=== PATIENT | male | born 1990 | race Caucasian/White ===

== ENCOUNTER 2023-08-18 18:39 | Emergency (ER) | payer MEDICAID, SELFPAY ==
[2023-08-18 18:41] VITALS: BP 134/88; PULSE 102; RESP 18; TEMP 37.1; O2SAT 93; BMI 46.2
--- NOTE | 2023-08-18 19:04 | EDS_ITS ---
HPI History of Present Illness Chief Complaint: Abd Pain Informant: patient Narrative Narrative: Patient has nonspecific complaint. Patient states that he was at home. He got the feeling like he smelled ammonia. He got a little lightheaded. His stomach had a little cramping. He does not know why this happened. But since his girlfriend was here getting an ultrasound he figured he would bring the child that he was home with, put her in the room with his girlfriend and get checked out. On review of systems I find that he also takes kratom twice a day for chronic pain and took it 3 times today. He wonders if taking medicines at an increased rate could cause different symptoms. Medications currently are olanzapine 5 mg every afternoon Trazodone 100 mg every afternoon Kratom twice a day unknown and not FDA controlled dosage Denies abdominal surgeries PFSH PFSH Home Medications olanzapine 10 mg tablet 7.5 mg PO QHS 08/18/23 [History Last Taken Unknown] trazodone 100 mg tablet 200 mg PO QHS 08/18/23 [History Last Taken Unknown] Allergy/AdvReac Type Severity Reaction Status Date / Time No Known Allergies Allergy Verified 08/18/23 18:41 Social History Smoking Status: Unknown if ever smoked ROS ROS ED ROS Narrative A complete review of systems was performed and is negative except as documented in the history of present illness. Some specific details below. Constitutional: No recent fevers or chills. EYE: No visual complaints or pain. ENT: No difficulty swallowing. No swelling. No pain. He does note smelling an ammonia smell transiently. CV: No chest pain or palpitations. Respiratory: No dyspnea. No hemoptysis. No difficulty taking breaths. GI: He had some abdominal cramping across his lower abdomen but it seems better now. : No frequency dysuria or hematuria. Musculoskeletal: No recent trauma. No pains. Skin: No rash. Nondiaphoretic. Neuro: No weakness or numbness. Endocrine: No polyuria or polydipsia. EXAM Physical Exam Narrative Exam Narrative: CONSTITUTIONAL: Patient is nontoxic in appearance. The patient looks comfortable. HEENT: No notable trauma. Mucous membranes moist. EYES: No conjunctival injection. No proptosis. Pupils look normal. CARDIOVASCULAR: Regular rate. Regular rhythm. No notable murmur. No JVD. RESPIRATORY: No respiratory distress. Breathing is unlabored. No wheezes. No rhonchi. No rales. No pain with a deep breath. GASTROINTESTINAL: Not distended. Bowel sounds are normal. No tenderness. No guarding. No rebound. No palpable mass. No bruit. Overall abdomen is completely benign. GENITOURINARY: No tenderness over the bladder. No CVA tenderness. MUSCULOSKELETAL: Atraumatic. No peripheral edema. No cord. No tenderness along the deep venous system. No asymmetry. NEUROLOGICAL: Patient is alert and appropriate. No focal deficit noted. SKIN: No noted rashes. No diaphoresis. PSYCHIATRIC: Patient is calm. Mood is appropriate. Const Vital Signs: 08/18/23 18:41 Temperature 98.7 F Temperature Source Temporal Pulse Rate 102 H Respiratory Rate 18 Blood Pressure 134/88 H Blood Pressure Mean 103 Pulse Ox 93 Oxygen Delivery Method Room Air MDM MDM MDM Narrative Medical decision making narrative: Patient's CBC shows no marked abnormalities. Patient's basic metabolic panel shows no marked abnormalities. Patient's liver function test show elevation of ALT but no other elevations. Patient feels better. It is unclear what caused his symptoms. This certainly could be the extra Kratom that he took today. I recommend he not take uncontrolled herbals that he gets through the mail. Lab Data Attestation: I reviewed the patient's lab results. Labs: Laboratory Results - last 24 hr 08/18/23 19:32 WBC 10.1 RBC 5.40 Hgb 14.8 Hct 45.3 MCV 83.9 MCH 27.4 MCHC 32.7 RDW Std Deviation 37.2 RDW Coeff of Caro 12.4 Plt Count 223 MPV 9.1 Immature Gran % (Auto) 0.400 Neut % (Auto) 79.5 H Lymph % (Auto) 13.3 L Parmer % (Auto) 5.8 Eos % (Auto) 0.7 Baso % (Auto) 0.3 Absolute Neuts (auto) 8.1 H Absolute Lymphs (auto) 1.35 Nucleated RBC % 0 Sodium 138 Potassium 4.2 Chloride 106 Carbon Dioxide 30.0 Anion Gap 2 L BUN 12 Creatinine 1.04 Estim Creat Clear Calc 127.72 Est GFR (MDRD) Af Amer 105 Est GFR (MDRD) Non-Af 87 BUN/Creatinine Ratio 11.5 Glucose 87 Calcium 9.0 Total Bilirubin 0.30 AST 34 ALT 89 H Alkaline Phosphatase 68 Total Protein 7.2 Albumin 3.5 Globulin 3.7 Albumin/Globulin Ratio 0.9 EKG Initial EKG: Comments: My independent interpretation of the patient's EKG shows sinus rhythm with a rate of 94. No ventricular ectopy. No acute ST elevation or depression.. MN interval, QRS duration and QTc are normal. Discharge Plan Triage Chief Complaint: Abd Pain ED Provider: Yon Reyes Dx/Rx/DC Orders Clinical Impression: Accidental medication overdose, Abdominal cramping Instructions: Abdominal Pain Primary Care Provider: Tiera Torres [employer] Referrals: Tiera Torres [employer], [employer]-[facility] [Primary Care Provider] - As Needed Disposition Disposition: Home, Self Care
--- OUTSIDE RECORDS SUMMARY | 2023-08-18 19:20 | XMS RPT_ITS | CCD ---
Author Name Unknown Address [address] [place] [address] Organization [facility] Care Team Providers Care Admissions Supervisor Name Role Phone Unavailable Primary Care Provider UnavailELIEZER Spaulding Attending Unavailable TIERA CORONA Referring Unavailable LAVINIA VERAS Attending Unavailable TIERA CORONA Referring Unavailable ELIEZER CAMARILLO Attending Unavailable ELIEZER CAMARILLO Attending Unavailable YOVANI ALONSO Attending Unavailable TIERA CORONA Primary Care Unavailable Allergies Allergy Classification Reported Allergen(s) Allergy Type Date of Onset Reaction(s) Facility (5 sources) Cat Dander; Translations: [CAT DANDER] Drug Allergy 01-25-2022 Itching [facility] Work Phone: Medications Current Medications Medication Drug Class(es) Dates Sig (Normalized) Sig (Original) ciclopirox 7.7 mg/ml topical cream (2 sources) Start: 01-25-2022 End: 02-08-2022 ciclopirox (LOPROX) 0.77 % cream Apply to affected area twice daily for 14 days. 15 g 0 01/25/2022 02/08/2022 Active Completed/Discontinued Medications Medication Drug Class(es) Dates Sig (Normalized) Sig (Original) busPIRone hydrochloride 10 mg oral tablet (1 source) Start: 05-31-2022 take 1 tablet by mouth twice daily busPIRone (BUSPAR) 10 mg tablet Take 1 tablet by mouth twice daily. 0 05/31/2022 Active Problems Active Problems Problem Classification Problem Date Documented Date Episodic/Chronic Fever of unknown origin (1 source) Fever, unspecified; Translations: [Fever, unspecified fever cause] Onset: 07-23-2023 Episodic Immunizations and screening for infectious disease (1 source) Patient encounter status; Translations: [Encounter for screening for human immunodeficiency virus [HIV]] Episodic Mood disorders (4 sources) Bipolar disorder; Translations: [Bipolar disorder, unspecified] Onset: 11-08-2020 Chronic Other nutritional; endocrine; and metabolic disorders (1 source) Severe obesity; Translations: [Morbid (severe) obesity due to excess calories] Chronic Other nutritional; endocrine; and metabolic disorders (3 sources) Body mass index 40+ - severely obese; Translations: [Morbid (severe) obesity due to excess calories] Onset: 01-25-2022 01-25-2022 Chronic Other skin disorders (1 source) Eruption; Translations: [Rash and other nonspecific skin eruption] Episodic Other upper respiratory infections (1 source) Acute upper respiratory infection, unspecified; Translations: [Upper respiratory tract infection, unspecified type] Onset: 07-23-2023 Episodic Schizophrenia and other psychotic disorders (5 sources) Schizoaffective disorder, bipolar type; Translations: [Schizoaffective disorder, bipolar type] Onset: 01-25-2022 Chronic Substance-related disorders (1 source) Other stimulant abuse, in remission; Translations: [Methamphetamine abuse in remission (HCC)] Onset: 05-25-2022 Chronic Unclassified (1 source) No-show for appointment; Translations: [No-show for appointment] Onset: 10-23-2022 Unclassified (1 source) Cough, unspecified type; Translations: [Cough, unspecified type] Onset: 07-23-2023 Past or Other Problems Problem Classification Problem Date Documented Da te Episodic/Chronic Hepatitis (6 sources) Viral hepatitis C; Translations: [Unspecified viral hepatitis C without hepatic coma] Onset: 01-25-2022 Episodic Substance-related disorders (4 sources) 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; Translations: [Other psychoactive substance use, unspecified with psychoactive substance-induced psychotic disorder, unspecified] Onset: 05-25-2022 05-31-2022 Episodic Results Test Name Value Interpretation Reference Range Facil ity Vital Signs Date Time Vital Sign Value Performing Clinician Cynthia arriola 01-25-2022 09:46-0400 Body height 167.6 cm Tiera Corona APRN.CNP Work Phone: [facility] 01-25-2022 09:46-0400 Body temperature 97.59 [degF] Tiera Corona APRN.CNP Work Phone: [facility] 01-25-2022 09:46-0400 Body weight 116.03 kg Tiera Corona ANIMAL RIDES MANAGER.CAR DRIVER Work Phone: [facility] 01-25-2022 09:46-0400 Diastolic blood pressure 70 mm[Hg] Tiera Queden ANIMAL RIDES MANAGER.CAR DRIVER Work Phone: [facility] 01-25-2022 09:46-0400 Heart rate 95 /min Tiera Laneden ANIMAL RIDES MANAGER.CAR DRIVER Work Phone: [facility] 01-25-2022 09:46-0400 Respiratory rate 18 /min Tiera Domingoden ANIMAL RIDES MANAGER.CAR DRIVER Work Phone: [facility] 01-25-2022 09:46-0400 SaO2% (BldA) [Mass fraction] 96 % Tiera Laneden ANIMAL RIDES MANAGER.CAR DRIVER Work Phone: [facility] 01-25-2022 09:46-0400 Systolic blood pressure 100 mm[Hg] Tiera Queden ANIMAL RIDES MANAGER.CAR DRIVER Work Phone: [facility] Encounters Encounter Date Encounter Type Care Provider Facility Start: 07-23-2023 End: 07-23-2023 ambulatory YOVANI ALONSO Facility:[facility] Start: 10-23-2022 ambulatory ELIEZER CAMARILLO Facility: [facility] Start: 08-21-2022 End: 08-21-2022 ambulatory ELIEZER CAMARILLO Facility:[facility] Start: 05-29-2022 ambulatory Tiera joe ANIMAL RIDES MANAGER.CAR DRIVER Work Phone: [facility] Plan of Treatment Date Care Activity Detail Author Start: 03-22-2022 Influenza vaccination INFLUENZA (#1) [facility] Start: 01-25-2022 End: 03-27-2022 CBC W Auto Differential panel - Blood CBC + DIFF Lab Routine Well adult exam Expected: 01/25/2022, Expires: 03/27/2022 [facility] Work Phone: Payers Date Payer Category Payer Medicaid [employer] [id number] 2021-Present [phone] [address] [place] [address] Medicaid [id number] 2021 Medicaid [place] TERM 06/20 [employer] [employer] [id number] 2021-2022 [address] [place] [address] Medicaid [id number] 2021 Medicaid [id number] Social History Date Type Detail Facility Start: 01-25-2022 End: 03-19-2022 Tobacco smoking status NHIS Never smoked tobacco [facility] Start: 01-25-2022 End: 03-19-2022 Tobacco use and exposure User of smokeless tobacco [facility] History of tobacco use Chews Tobacco [facility] Start: 01-25-2022 End: 03-19-2022 Alcohol intake Ex-drinker (finding) [facility] Start: 1990 Sex Assigned At Not on file [facility] Start: 01-15-2022 End: 02-05-2022 Exposure to SARS-CoV-2 (event) Not sure [facility] Clinical Notes 01-25-2022 to 07-23-2023 Telephone Encounter - Nicky Perez MA - 06/01/2022 4:50 PM ESTTelephone Encounter - Tiera Corona APRN.CNP - 06/01/2022 4:31 PM EST Note Date & Type Note Facility 07-23-2023 Note HNO ID: [id number] Author: Yovani Alonso APRN.LEAH Service: ? Author Type: Nurse Practitioner Type: Progress Notes Filed: 07/23/2023 5:42 PM Note Text: Telemedicine Evaluation for COVID-19 Infection MyChart Zoom Video Visit was used for evaluation of this patient. I have communicated my name and active licensure. The patient's identity and physical location were verified at the time of this visit. Either the patient or their legal artists' booking representative has been informed of the risks and benefits of -- and alternatives to -- treatment through a remote evaluation and consents to proceed with the evaluation remotely. SUBJECTIVE Naya Joyce is a 33 year old male who presents with 5 days of symptoms that are worsening. Started with mild sore throat Stuffy nose, runny nose Then cough Cough is persistent - keeping him up all night Cough is productive Symptoms include: Fever (?100.4F): Yes or Chills: Yes Cough: Yes Shortness of breath: No or Difficulty breathing: No Fatigue: Yes Muscle aches: Yes - just lower back Headache: Yes New loss of smell or taste: No Sore throat: Yes Nasal congestion: No or Rhinorrhea: No Nausea: No or Vomiting: No Diarrhea: No OTC meds/remedies that patient has tried: Dayquiol, Nyquil, acetaminophen. High risk category assessment No high risk factors Exposures: Sick contacts? Yes Family or close contacts with confirmed/probable COVID-19 in last 14 days? No Mom was really sick and she took COVID test and it was negative OBJECTIVE VIDEO EXAM GENERAL: Ill-appearing, but non-toxic HEENT: no conjunctival injection, pupils equal, moist mucous membranes, and oropharynx clear without erythema PULMONARY: breathing comfortably on room air , coughing, and no wheezing noted ASSESSMENT/PLAN (R05.9) Cough, unspecified type (primary encounter diagnosis) (J06.9) Upper respiratory tract infection, unspecified type (R50.9) Fever, unspecified fever cause COVID/Flu/RSV test ordered Continue OTC cough/cold medications Tessalon perles as needed Off work till 07/25 Follow up for worsening or persistent symptoms. - Discussed symptom monitoring and supportive care - Red flag symptoms requiring follow up discussed Yovani Alonso APRN.[facility] 10-23-2022 Note HNO ID: [id number] Author: Eliezer Camarillo MD Service: ? Author Type: Resident Type: Progress Notes Filed: 10/23/2022 3:57 PM Note Text: Attestation signed by Johnathon Wright MD at 10/23/2022 4:06 PM Attending Note I evaluated the patient and personally participated in the garcia components. I agree with the resident's findings and plan as documented and have discussed the case and management of the patient's care with the resident. Signature: Johnathon Wright MD Date: 10/23/2022 Time: 4:06 PM I called to speak to patient. He stated that he had switched providers to someone closer who could see him in-person. He asked to terminate care here as a result. Eliezer Camarillo MD [facility] 08-21-2022 Note HNO ID: [id number] Author: Eliezer Camarillo MD Service: ? Author Type: Resident Type: Progress Notes Filed: 08/21/2022 2:38 PM Note Text: OUTPATIENT PSYCHIATRY NOTE FOLLOW-UP, VIRTUAL 08/21/2022 Assessment: Naya Joyce is a 32 year old male with psychiatric history of schizoaffective disorder, bipolar disorder, history of IVDA, Kratom use, cannabis use, and opioid use disorder and medical history pertinent for HCV and obesity c3 who presents to the [facility] for a follow-up regarding his medications. He was last seen by me for an initial evaluation on 05/25/22. At that time, the plan was made to discontinue Cariprazine for Olanzapine as he reported previously doing better on that medication. He agreed to attempt ceasing THC and Kratom use. Since his last appointment, Naya was able to successfully stop using THC and reported improvement in mood with medication until acute stressor of having his four kids from [place] move in with him happened. He quit his job and is now unemployed. He has a supportive partner who is helping out. He endorsed stable/improved anxiety but continues to struggle with irritability, AH, delusions, and low energy. Will increase Olanzapine while decreasing Trazodone to for mood stabilization and psychotic symptoms while improving energy during the day. Pristiq will be increased to help with energy and irritability as well. I suspect that psychotic symptoms are related to past meth abuse and past trauma--may not resolve entirely with antipsychotic use. He is seeking therapy which will be beneficial. Continuing to use 4 bottles of Kratom from 5--agreed to attempt decreased use. RTC 2 months. Diagnosis: Schizoaffective disorder, depressive type Trauma or stressor-related disorder R/O PTSD Methamphetamine use disorder, severe, in remission Opioid use disorder History of heroin use in remission Daily Kratom use (14g daily) Cocaine use disorder in remission Cannabis use, episodic GAF: 55 -60-51 Moderate symptoms or moderate difficulty in social, occupational or school functioning. Plan: Start Olanzapine 10mg PO QHS Continue Trazodone 300mg PO QHS Continue Clonidine 0.1mg PO BID Continue Buspirone 10mg PO BID Continue Desvenlafaxine ER 50mg PO daily Taper Kratom use to at least 3 bottles. RTC: 2 months 10/23 3:50pm, virtual CC: Medication management Interval events -Last psychiatry appointment was on 05/25/22. -Follow-up was canceled/rescheduled. Therefore delayed appointment today. -No other events per chart review Current medications -Olanzapine 10mg at bedtime -Trazodone 300mg PO QHS -Clonidine 0.1mg BID ?? -Buspirone 10mg PO BID -Pristiq 50mg daily PDMP website checked and validated. All prescriptions have been APPROPRIATELY filled. No suspicious activity was identified. 08/21/2022 by Eliezer Camarillo MD Past medications: Cariprazine Zoloft (made it worse) Suboxone (too strong) Gabapentin (there was no change) Significant history -Significant polysubstance abuse starting in late teen years into adulthood with cocaine, opioid pills, then heroin and meth. Psychotic features emerged after meth abuse started. -From [place]. Primary psychiatric symptom of concern: Mood swings, auditory hallucinations Perceived progress: mixed Stressors: Loss of employment 4 new kids at home. -- Faxed records, has not found the time to do it yet. Therapy: Not yet. Still having trouble finding a therapist. Work: Unemployed, seeking employment. Medications Before kids moved in, he was noticing some improvements with the medication. Mood was better and less irritable. Always tired. Sleep Sleeps through the night. Goes to bed at 9:30, wakes up at 6:45. Not waking up at night. Feels tired. Appetite: overeating because of stress. Mood is good . There are now five kids at home. This has added stress. Four kids from [place] now live with him, starting 07/16. Auditory hallucinations did not change at all with the medications Still one male voice. Always negative even when he is in a good mood. Urmila Irvin delusion is still present but he is able to resist. At the gas station, thinks he is seeing famous people. Endorsed thoughts of self-harm. Feeling like a failure. Better off if I'm not here. Thoughts of crashing his car. Voices are telling him to follow through, able to talk back at them. More easily irritable with kids and girlfriend. Girlfriend is doing a good job with helping. Substances Stopped smoking THC. Still using Kratom, 4 bottles instead of 5. Anxiety is not that bad. Doesn't take BP at home. No headaches or changes vision. Refills: all Preferred pharmacy: [facility] in [facility] REVIEW OF SYSTEMS PAIN ASSESSMENT: Negative for pain, history of chronic pain, or current treatment for a chronic pain condition. GENERAL: No weight loss, malais (more content not included)... [facility] 06-01-2022 Miscellaneous Notes Patient is informed. Nicky Perez MA Please let the patient know that I placed a referral for psychology. I would recommend to see if his psychiatrist recommends anyone for counseling. If not, please give him Michael Noriega's number that comes to [place] from [facility]. documented in this encounter [facility] 05-25-2022 Note HNO ID: [id number] Author: Eliezer Camarillo MD Service: ? Author Type: Resident Type: Progress Notes Filed: 06/04/2022 7:35 AM Note Text: Attestation signed by Lynda Wang MD at 06/04/2022 7:35 AM Attending Note I evaluated the patient and personally participated in the garcia components. I agree with the resident's findings and plan as documented and have discussed the case and management of the patient's care with the resident. TELEHEALTH VISIT: I was present throughout all critical parts of the telehealth visit. I spent 30 minutes. Signature: Lynda Wang MD Date: 06/04/2022 Time: 7:35 AM PSYCHIATRY - INITIAL ASSESSMENT Patient was seen for an initial evaluation. All information is from patient report except when noted. This evaluation is not intended for forensic, disability, or child custody purposes. This note was partially created using voice recognition software and is inherently subject to errors including those of syntax and sound-alike substitutions which may escape proofreading. In such instances, original meaning may be extrapolated by contextual derivation. Type of visit: virtual visit Accompanied by: self DATE: May 25, 2022 PATIENT: Naya Joyce REFERRAL SOURCE: Tiera Corona APRN, LEHA BACKGROUND INFORMATION ID: Naya Joyce is a 32 year old male from [place], [place] who presents today for initial psychiatric assessment. PREVIOUS/RECENT EVALS: PCP visit on 01/25/22 with Tiera Corona APRN CAR DRIVER: Naya Joyce is a 31 year old male who presents for Physical and Establish Care. I reviewed past medical, surgical, social, and family histories today and updated chart. Allergies, chronic medications, and supplements were also reviewed. Recently moved here from [place] about a year and half ago Used to use IV drugs and has been sober for 3 years Diagnosed with schzio-affective bipolar disorder and has been following with [facility] in [place] but he has been having issues getting his Pristiq and has been out for about 3 months now He does feel like he has a hard time to get motivated Needs referral to psychiatry He did go to the [facility] for a few months back when he first moved here 1.5 years ago but did not have a good experience there. He was in the Suboxone clinic there but it was too strong for him so he wanted to stop the medication and they told him he could no longer have counseling without taking the medication. Instead he uses Kratom every day. His girlfriend administers it for him and he states he has weaned down to a quarter of a small bottle daily. He vapes marijuana a few times a week. He does not drink alcohol. He is not currently working 5 kids 2. Schizoaffective disorder, bipolar type (HCC) - ICD9: 295.70, ICD10: F25.0 - Discussed with patient that he will need to establish with psychiatry for medication management. - VRAYLAR 6 MG CAPSULE - CLONIDINE HCL 0.1 MG TABLET - HYDROXYZINE HCL 50 MG TABLET - TRAZODONE 150 MG TABLET - CONSULT TO PSYCHIATRY 3. Bipolar affective disorder, remission status unspecified (HCC) - ICD9: 296.80, ICD10: F31.9 - Will give him a refill until he is seen by psychiatry - DESVENLAFAXINE SUCCINATE ER 50 MG TABLET,EXTENDED RELEASE 24 HR SUBJECTIVE CC: it started a while ago. I started to hear voices. HPI: Describes self as shy, loves his family . Currently sees a psychiatrist at [facility]. Prefers to switch to [facility] for virtual ease. He hasn't told Dr. Esqueda about the switch because he forgot about this appointment. Interim events Had a mental breakdown in [place] about 3.5 years. Moved from [place] about 1.5 years ago, medications were working at the time. Olanzapine, Clonazepam, and a medication he cannot remember. From [facility] in [place], [place] Symptoms Auditory hallucinations Voices started at age 28 or 29. Voices that narrate his life. One time they told him that a car was his and he tried to take it and got in trouble. Denied voices currently. But hears them at least once a day. Hears two voices. One is his own. The other is intrusive. Male voice every time. Perceived as internal There are commands Last command was about one month ago. He was working a job and the voice was saying you don't need to work. Unable to resist the voice in his head. Only one instance of the voice with command to hurt himself. None currently. Denied CAH related to HI. Voice increases with stress Substance use Started using at age 15 with cocaine for about one year. Reason for using: started using pain medication meant for her girlfriend. Progressed to opioids until 25y Then moved on to heroin and meth. Hi (more content not included)... [facility] 03-19-2022 Note HNO ID: [id number] Author: Lavinia Veras PA-C Service: ? Author Type: Physician Radon Inspector Type: Progress Notes Filed: 03/19/2022 9:49 AM Note Text: CHIEF COMPLAINT: Patient presents with: Hepatitis C: Labs 02/05/22 This consult was requested by Tiera Corona APRN* for an opinion regarding Hepatitis C. My final recommendations will be communicated to the requesting health care provider by way of the shared medical record for internal providers or letter via the [employer] for external providers. HPI: Naya Joyce is a 31 year old male who presents for Hepatitis C (Labs 02/05/22). PMHx of Hepatitis C, Schizoaffective disorder, obesity Patient is feeling well. Denies any GI symptoms today. Appetite is good. Weight is stable. Diagnosed with Hepatitis C in 2016 from [facility]. Has been clean for 3.5 years. Does have numerous non-professional tattoos while in [facility]. Denies hx of blood transfusion. Treatment naive. Denies jaundice. Chew tobacco. No alcohol use. Component Latest Ref Rng AND Units 02/05/2022 WBC 3.70 - 11.00 k/uL 7.25 RBC 4.20 - 6.00 m/uL 5.73 Hemoglobin 13.0 - 17.0 g/dL 16.2 Hematocrit 39.0 - 51.0 % 47.0 MCV 80.0 - 100.0 fL 82.0 MCH 26.0 - 34.0 pg 28.3 MCHC 30.5 - 36.0 g/dL 34.5 RDW-CV 11.5 - 15.0 % 12.5 Platelet Count 150 - 400 k/uL 235 MPV 9.0 - 12.7 fL 9.2 Neut% % 64.5 Abs Neut (ANC) 1.45 - 7.50 k/uL 4.68 Lymph% % 29.0 Abs Lymph 1.00 - 4.00 k/uL 2.10 [place]st% % 5.5 Abs [place] <0.87 k/uL 0.40 Eosin% % 0.7 Abs Eosin <0.46 k/uL 0.05 Baso% % 0.3 Abs Baso <0.11 k/uL <0.03 DTYPE Auto Protein, Total 6.3 - 8.0 g/dL 7.7 Albumin 3.9 - 4.9 g/dL 4.7 Calcium 8.5 - 10.2 mg/dL 9.5 Bilirubin, Total 0.2 - 1.3 mg/dL 0.6 Alkaline Phosphatase 38 - 113 U/L 65 AST 14 - 40 U/L 21 ALT 10 - 54 U/L 32 Glucose 74 - 99 mg/dL 104 (H) BUN 9 - 24 mg/dL 12 Creatinine 0.73 - 1.22 mg/dL 1.03 Sodium 136 - 144 mmol/L 139 Potassium 3.7 - 5.1 mmol/L 4.4 Chloride 97 - 105 mmol/L 102 CO2 22 - 30 mmol/L 24 Anion Gap 9 - 18 mmol/L 13 eGFR >=60 mL/min/1.73m? 99 Cholesterol, Total <200 mg/dL 173 Triglyceride <150 mg/dL 112 HDL Cholesterol >39 mg/dL 50 Non HDL Cholesterol <130 mg/dL 123 Fasting Time hrs 13 VLDL Cholesterol <30 mg/dL 22 TC:HDL Ratio <5.10 3.46 LDL Cholesterol <100 mg/dL 101 (H) LDL:HDL Ratio <2.54 2.02 HIV 12 Combo (Ag/Ab) Nonreactive Nonreactive HIV 1/2 Ab HIV Interpretation HCV RNA by PCR HCV RNA not detected by PCR. HCV RNA detected by PCR. (A) HCV RNA (IU/mL) IU/mL 33.9 (H) Log HCV Quant RNA Log IU/mL 1.53 (H) Hemoglobin A1C 4.3 - 5.6 % 5.4 Estimated Average Glucose mg/dL 108 TSH 0.270 - 4.200 mIU/L 1.380 Record Review: [facility] / Outside records reviewed. PAST MEDICAL HISTORY Diagnosis Date Bipolar 1 disorder, depressed (HCC) Hepatitis C without hepatic coma Mixed schizophrenic and affective psychosis (HCC) History reviewed. No pertinent surgical history. Allergies: ALLERGIES Allergen Reactions Cat Dander Itching Medications: VRAYLAR 6 mg capsule cloNIDine HCl (CATAPRES) 0.1 mg tablet TAKE 1 TABLET BY MOUTH THREE TIMES A DAY NEEDED hydrOXYzine HCl (ATARAX) 50 mg tablet traZODone (DESYREL) 150 mg tablet TAKE 2 TABLETS BY MOUTH EVERY DAY AT BEDTIME desvenlafaxine ER (PRISTIQ) 50 mg 24 hr tablet Take 1 tablet by mouth once daily. FAMILY HISTORY Problem Relation Age of Onset Anxiety disorder Mother Stroke Father COPD Father Depression Brother Anxiety disorder Brother Heart Attack Brother Colon Cancer No Family History Employer And Job Title: None on file Years Of Education Completed: Not specified Marital Status: Social History Tobacco Use Smoking status: Never Smokeless tobacco: Current Types: Chew Vaping Use Vaping Use: Some days Substance Use Topics Alcohol use: Not Currently Drug use: Yes Types: Marijuana Comment: Seldom Review of Systems: Review of Systems Gastrointestinal: Gas All other systems reviewed and are negative. Are you taking any blood thinners? No Physical Examination: Pulse 68 Ht 5' 6 (1.68m) Wt 261 lb (118.4kg) BMI 42.15 kg/(m2). Physical Exam Constitutional: Appearance: Normal appearance. He is obese. HENT: Head: Normocephalic and atraumatic. Nose: Nose normal. Eyes: General: No scleral icterus. Extraocular Movements: Extraocular movements intact. Conjunctiva/sclera: Conjunctivae normal. Pupils: Pupils are equal, round, and reactive to light. Cardiovascular: Rate and Rhythm: Normal rate and regular rhythm. Pulses: Normal pulses. Heart sounds: Normal heart sounds. Pulmonary: Effort: Pulmonary effort is normal. Breath sounds: Normal breath sounds. Abdominal: General: Abdomen is flat. Bowel sounds are normal. Palpations: Abdomen is soft. Tenderness: There is no abdominal tenderness. Musculoskeletal: General: Normal range of motion. Cervical back: Normal range of motion and ne (more content not included)... [facility] 02-07-2022 Miscellaneous Notes Patient aware of all results and recommendations. Number given for GI . Evonne Harry MA A1C normal range- no diabetes CBC, TSH, CMP were all normal HIV negative Lipid panel was good HCV was positive I would recommend he sees GI for this. Referral placed to [facility] [address] [place] [address] Appointment: [phone] Desk: [phone] documented in this encounter [facility] documented as of this encounter (statuses as of 06/01/2022) [facility]07-07[facility]20[facility] History of Present illness Narrative* Tiera Corona APRN.LEAH - 01/25/2022 9:58 AM EDT Images from the original note were not included. [address] [address] Date of Evaluation: 01/25/2022 Patient Name: Naya Joyce : 1990 Naya Joyce is a 31 year old male who presents for Physical and Establish Care. I reviewed past medical, surgical, social, and family histories today and updated chart. Allergies, chronic medications, and supplements were also reviewed. 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 He was in the Suboxone clinic there but it was too strong for himso he wanted to stop the medication and they told him he could no longer have counseling without taking the medication. Instead he uses Kratom every day. His girlfriend administers it for him and he states he has weaned down to a quarter of a small bottle daily. He vapes marijuana a few times a week. He does not drink alcohol. He is not currently working 5 kids Exercise: Patient does not have an exercise routine. Weight Trend: Last 2 Encounter Wt Readings: Date: Wt: 01/25/2022 116 kg (255 lb 12.8 oz) Eating Habits: Patient does not maintain healthy eating habits most of the time. Types of food excess sweets, fast food Caffeine- 3-4 Red Bulls daily, 3-4 sodas No alcohol Tobacco Use: Tobacco Use: Types: Chew Active Problem List/Chronic Problems There are no active hospital problems to display for this patient. Health Maintenance COVID-19 VACCINE(1) Never done HEPATITIS C SCREENING Never done HIV SCREENING Never done DTAP,TDAP,TD(1 - Tdap) Never done HEALTH MAINTENANCE REVIEW: Tdap- thinks it was over 10 years ago Review of Systems Constitutional: Positive for fatigue. Negative for appetite change, chills, diaphoresis and fever. HENT: Negative. Eyes: Negative for visual disturbance. Respiratory: Positive for wheezing (on occasion). Negative for cough, chest tightness and shortnessof breath. Cardiovascular: Negative for chest pain, palpitations and leg swelling. Gastrointestinal: Negative. Endocrine: Negative. Genitourinary: Negative for dysuria, frequency, genital sores, hematuria, scrotal swelling, testicular pain and urgency. Musculoskeletal: Positive for back pain. Negative for arthralgias, gait problem, joint swelling, myalgias, neck pain and neck stiffness. Skin: Positive for color change (rash on left wrist). Negative for rash. Neurological: Negative for dizziness, seizures, syncope, weakness, light- headedness and headaches. Psychiatric/Behavioral: Positive for dysphoric mood. Negative for confusion, hallucinations, self-injury and suicidal ideas. The patient is nervous/anxious. PAIN: Negative for pain, history of chronic pain, or current treatment for a chronic pain condition. ALLERGIES Allergen Reactions Cat Dander Itching VRAYLAR 6 mg capsule cloNIDine HCl (CATAPRES) 0.1 mg tablet TAKE 1 TABLET BY MOUTH THREE TIMES A DAY NEEDED hydrOXYzine HCl (ATARAX) 50 mg tablet traZODone (DESYREL) 150 mg tablet TAKE 2 TABLETS BY MOUTH EVERY DAY AT BEDTIME desvenlafaxine ER (PRISTIQ) 50 mg 24 hr tablet Take 1 tablet by mouth once daily. ciclopirox (LOPROX) 0.77 % cream Apply to affected area twice daily for 14 days. PAST MEDICAL HISTORY Diagnosis Date Bipolar 1 disorder, depressed (HCC) Mixed schizophrenic and affective psychosis (HCC) History reviewed. No pertinent surgical history. FAMILY HISTORY Problem Relation Age of Onset Anxiety disorder Mother Stroke Father COPD Father Depression Brother Anxiety disorder Brother Heart Attack Brother Last 3 Encounter BP Readings: Date: BP: 01/25/2022 100/70 BP 100/70 Pulse 95 Temp (Src) 97.6 (Oral) Resp 18 Ht 5' 6 (1.68m) Wt 255 lb 12.8 oz (116.0kg) SpO2 96% BMI 41.31 kg/(m^2). Physical Exam Vitals and nursing note reviewed. Constitutional: Appearance: He is well-developed. He is obese. HENT: Head: Normocephalic and atraumatic. Right Ear: Tympanic membrane, ear canal and external ear normal. Left Ear: Tympanic membrane, ear canal and external ear normal. Nose: Nose normal. Mouth/Throat: Lips: [place]. Mouth: Mucous membranes are moist. Pharynx: Oropharynx is clear. Eyes: General: Vision grossly intact. Conjunctiva/sclera: Conjunctivae normal. Pupils: Pupils are equal, round, and reactive to light. Neck: Thyroid: No thyroid mass or thyromegaly. Cardiovascular: Rate and Rhythm: Normal rate and regular rhythm. Pulses: Normal pulses. Heart sounds: Normal heart sounds. No murmur heard. Pulmonary: Effort: Pulmonary effort is normal. No respiratory distress. Breath sounds: Normal air entry. Examination of the left-lower field reveals wheezing. Wheezing (with deep inspiration, once) present. No decreased breath sounds, rhonchi or rales. Abdominal: General: Bowel sounds are normal. Palpations: Abdomen is soft. There is no hepatomegaly or splenomegaly. Tenderness: There is no abdominal tenderness. Musculoskeletal: Cervical back: Normal range of motion and neck supple. Right lower leg: No edema. Left lower leg: No edema. Skin: General: Skin is warm and dry. Findings: Rash present. Comments: Small pink/red scaly rash to outer left wrist Neurological: Mental Status: He is alert and oriented to person, place, and time. Cranial Nerves: Cranial nerves are intact. Motor: Motor function is intact. Psychiatric: Mood and Affect: Mood normal. Speech: Speech normal. Behavior: Behavior normal. Thought Content: Thought content normal. Cognition and Memory: Cognition normal. Judgment: Judgment normal. ASSESSMENT / PLAN: 1. Well adult exam - ICD9: V70.0, ICD10: Z00.00 (primary diagnosis) - Counseled on healthy diet and regular exercise - Discussed need for and benefit of weight loss. BMI 41.29 kg/(m^2) - Depression screening tool completed and reviewed with patient. Based on score and interview, patient is already diagnosed with depression and recommended psychiatry referral. - Follow up for annual exam in one year - COMP METABOLIC PANEL - HGB A1C - LIPID PANEL BASIC - CBC + DIFF - TSH BLD 2. Schizoaffective disorder, bipolar type (HCC) - ICD9: 295.70, ICD10: F25.0 - Discussed with patient that he will need to establish with psychiatry for medication management. - VRAYLAR 6 MG CAPSULE - CLONIDINE HCL 0.1 MG TABLET - HYDROXYZINE HCL 50 MG TABLET - TRAZODONE 150 MG TABLET - CONSULT TO PSYCHIATRY 3. Bipolar affective disorder, remission status unspecified (HCC) - ICD9: 296.80, ICD10: F31.9 - Will give him a refill until he is seen by psychiatry - DESVENLAFAXINE SUCCINATE ER 50 MG TABLET,EXTENDED RELEASE 24 HR 4. Rash - ICD9: 782.1, ICD10: R21 - Will send in Loprox cream 5. Class 3 severe obesity without serious comorbidity with body mass index (BMI) of 40.0 to 44.9 inadult, unspecified obesity type (HCC) - ICD9: 278.01, V85.41, ICD10: E66.01, Z68.41 Newly diagnosed - Behavioral intervention 6. Hepatitis C virus infection without hepatic coma, unspecified chronicity - ICD9: 070.70, ICD10: B19.20 - HCV QUANT RNA BY PCR 7. Screening for HIV (human immunodeficiency virus) - ICD9: V73.89, ICD10: Z11.4 - HIV 1 2 COMBO(AG/AB),WITH REFLEX TO DIFFERENTIATION Discussed health maintenance, including regular aerobic exercise, low fat diet, and periodic exams. Return in about 1 year (around 01/25/2023) for well adult exam. Tiera Corona APRN.CNP [facility] Instructions* Patient Instructions* Tiera Corona APRN.CNP - 01/25/2022 9:58 AM EDT [facility] [address] [place] [address] [address], [place] [address] PHONE:[phone] FAX: [phone] [place], [place] [phone] GET HELP If you have symptoms of clinical depression, you can get help by doing one or more of the followin. Please talk with your doctor. 2. If you are already in treatment, make sure you contact and update your doctor or therapist. 3. Review additional options for care based on patient or provider preference: Central/Multiple Locations: [facility]: [address] [place] [address] Lul Hawkins: [address] [address] [place] - [phone] [facility]: [address] [facility] - [phone] [facility]: [address] [facility] - [phone] [place] [facility] and Children: [facility] - [phone] (Medicaid only) [facility]: Multiple Locations - [phone] [facility] Department of Psychiatry & Psychology at [phone] (select Option 1) or [phone] (select Option 1) Connections: Multiple Locations - [phone] (Medicaid only) Leonor King [facility] - Multiple Locations - [phone] (Medicaid only) [facility] Multiple Locations - [phone] Psychological and Behavioral Consultants: Multiple Locations - [phone] [facility]: Multiple Locations - [phone] [place] Locations: [facility]: [address] [facility] - [phone] [facility]: [address] [place] - [phone] Shandra Motley PhD and Associates: [address] [place] - [phone] [place] [id number] [facility] [address] [place] - [phone] Joey Boothe MD: [address] [address] [facility] - [phone] [facility] [address] [facility], [place] - [phone] [facility]: 9[address] [facility] - [phone] [facility] Counseling/[facility] [place], [address] [facility] - [phone] [place] Locations: Angelique Cote MD [facility] Inc: [address], [place] - [phone] Shandra Motley PhD and Associates: [address] [address]ari [facility] - [phone] [facility] Services: [address] [facility] - [phone] [facility] Inc.: [address] [facility] - [phone] [facility], [address] - [phone] [facility] Counseling/Growth [place], [address] Rupali [address] [place] - [phone] [facility]: [address] [facility] [phone] [place] Locations: [facility] [address] [facility] -[phone] [facility] L Nelson Gar[address], [facility] - [phone] [facility]: [address] [facility] Yancy [place] - [phone] [facility]: [address] [facility] - [phone] [facility] [address] [facility] Lilliana Yi - [phone] [place] Locations: [facility] - Kei Hahn MD Psychiatry, Sleep Medicine - 2420 [facility] - [phone] or [phone] Marietta Nunez MD - 24[address] [facility] [phone] [facility] Consultants - DIEGO Merino, [facility] - [address] [phone] [facility] - [address] [facility] [phone] [facility] (NO Commercial Insurance accepted) - [address] [facility] [phone] [facility] - Michael Soto, [facility], [facility] - [address] [place] [phone] Eloina Oliver, [facility] - 2400 [facility] [phone] Starr Hdez, [facility] - [address] [phone] Zev Love, PhD - [address] [phone] Carol Martines, [facility] - [address] [phone] Lexy Rivera, [facility], [facility] (No Medicare, [place], [employer]) - [address] [phone] Jason Jo, [facility] - [address] [place] [facility] - [phone] Lavon Segovia, [facility] - [address] [facility] [phone] For additional resources and information please call or review the website: [email or web address] If you are feeling suicidal, please call [employer], , or the National Suicide Hotline , Call 911, or go to your nearest emergency room documented in this encounter[facility]* Diagnosis Well adult exam- Primary Routine general medical examination at a health care facility Schizoaffective disorder, bipolar type (HCC) Schizoaffective disorder, unspecified condition Bipolar affective disorder, remission status unspecified (HCC) Rash Rash and other nonspecific skin eruption Class 3 severe obesity without serious comorbidity with body mass index (BMI) of 40.0 to 44.9 in adult, unspecified obesity type (HCC) Hepatitis C virus infection without hepatic coma, unspecified chronicity Screening for HIV (human immunodeficiency virus) Special screening examination for other specified viral diseases documented in this encounter [facility]* Diagnosis Hepatitis C virus infection without hepatic coma, unspecified chronicity- Primary documented in this encounter [facility]* Diagnosis Schizoaffective disorder, bipolar type (HCC)- Primary Schizoaffective disorder, unspecified condition Bipolar affective disorder, remission status unspecified (HCC) documented in this encounter [facility] Reason for Referral Specialty Diagnoses / Procedures Referred By Contac t Referred To Contact Diagnoses Bipolar affective disorder, remission status unspecified (HCC) Tiera Corona APRN.CNP [address] [place] [address] Referral ID Status Reason Start Date Expiration Date Visits Re quested Visits Authorized [id number] Closed 1 1 Specialty Diagnoses / Procedures Referred By Contac t Referred To Contact ADULT PSYCHIATRY Diagnoses Schizoaffective disorder, bipolar type (HCC) Procedures CONSULT TO PSYCHIATRY OFFICE/OUTPATIENT [facility] 60-74 MINUTES Tiera Corona APRN.CAR DRIVER [address] [place] [address] [facility] Adult [facility] [address] [place] [address] Referral ID Status Reason Start Date Expiration Date Visits Requested Visits Authorized [id number] Pending Review PCP Requested Referral 01/25/2022 01/25/2023 1 1 Specialty Diagnoses / Procedures Referred By Contac t Referred To Contact Diagnoses Hepatitis C virus infection without hepatic coma, unspecified chronicity Procedures CONSULT TO GASTROENTEROLOGY OFFICE/OUTPATIENT [facility] 60-74 MINUTES Tiera Corona APRN.CAR DRIVER [address] [place] [address] Gastroeneterology, [facility] Referral ID Status Reason Start Date Expiration Date V isits Requested Visits Authorized [id number] Authorized 02/07/2022 02/07/2023 1 1 Specialty Diagnoses / Procedures Referred By Contac t Referred To Contact Diagnoses Schizoaffective disorder, bipolar type (HCC) Bipolar affective disorder, remission status unspecified (HCC) Procedures CONSULT TO [facility] ADULT GALLERY DIRECTOR Tiera Corona APRN.CAR DRIVER [address] [place] [address] [address] Referral ID Status Reason Start Date Expiration Date Visits Requested Visits Authorized [id number] Ref Not Required PCP Requested Referral 2 08/30/2022 1 1 Specialty Diagnoses / Procedures Referred By Contac t Referred To Contact Diagnoses Schizoaffective disorder, bipolar type (HCC) Bipolar affective disorder, remission status unspecified (HCC) Procedures CONSULT TO PSYCHOLOGY OFFICE/OUTPATIENT [facility] 60-74 MINUTES Tiera Corona APRN.CAR DRIVER [address] [place] [address] [facility] [address] [place] [address] Referral ID Status Reason Start Date Expiration Date Visits Requested Visits Authorized [id number] Pending Review PCP Requested Referral 2 06/01/2023 1 1 Summary Purpose Family History No Family History Records FoundNo Family History Records FoundNo Family History Records Found Advance Directives No Advanced Directives Records FoundNo Advanced Directives Records FoundNo Advanced Directives Records Found Additional Source Comments Source Comments (unrecognize d section and content) In the event this informatio n is protected by the Federal Confidentiality of Alcohol and Drug Abuse Patient Records regulations: The Federal rules restrict any use of the information to criminally investigate or prosecute any alcohol or drug abuse patient.[facility] the event this information is protected by the Federal Confidentiality of Alcohol and Drug Abuse Patient Records regulations: The Federal rules restrict any use of the information to criminally investigate or prosecute any alcohol or drug abuse patient.[facility] the event this information is protected by the Federal Confidentiality of Alcohol and Drug Abuse Patient Records regulations: The Federal rules restrict any use of the information to criminally investigate or prosecute any alcohol or drug abuse patient.[facility] Reason for Visit (unrecogniz ed section and content) Reason Comments Results Orders (unrecognized sect ion and content) No Status Records FoundNo Status Records FoundNo Status Records Found INFORMATION SOURCE (unrecogn ized section and content) DATE CREATED AUTHOR AUTHOR'S KEYON ATION 10/26/2022 [facility] DATE CREATED AUTHOR AUTHOR'S ORGANSULAIMAN ATION 07/24/2023 [facility] FOR RECORDS PERTAINING TO PATIENTS WHO ARE OR HAVE BEEN ENROLLED IN A CHEMICAL DEPENDENCY/SUBSTANCEABUSE PROGRAM, SOME INFORMATION MAY BE OMITTED. This clinical summary was aggregated from multiple sources. Caution should be exercised in using it in the provision of clinical care. This summary normalizes information from multiple sources, and as a consequence, information in this document may materially change the coding, format and clinical context of patient data. In addition, data may be omitted in some cases. CLINICAL DECISIONS SHOULD BE BASED ON THE PRIMARY CLINICAL RECORDS. The [facility]. provides no warranty or guarantee of the accuracy or completeness of information in this document.
[2023-08-18 19:37] LABS: Absolute Lymphocyte Count 1.35 X10^3/uL (0.83-4.51); Absolute Neutrophil Count 8.1 X10^3/uL (2.0-7.7); Basophil# 0.03 X10^3/uL; Basophil% 0.3 % (0-1); Eosinophil# 0.07 X10^3/uL; Eosinophils% 0.7 % (0-5); Hematocrit 45.3 % (40-54); Hemoglobin 14.8 g/dL (13.0-16.5); Lymphocyte # 1.35 X10^3/ul (0.83-4.51); Lymphocyte % 13.3 % (19-41); Mean Corp Hgb Conc 32.7 g/dL (32-36); Mean Corpuscular Hgb 27.4 pg (27.0-32.0); Mean Corpuscular Volume 83.9 fL (80-94); Mean Platelet Vol. 9.1 fl (6.2-12.0); Monocyte# 0.59 X10^3/uL; Monocyte% 5.8 % (0-10); NRBC Flagged by Analyzer 0 % (0-5); Neutrophil # 8.05 X10^3/uL (2.7-7.7); Neutrophil % 79.5 % (47-70); Platelet Count 223 K/mm3 (150-450); RBC Distribution Width CV 12.4 % (11.6-14.6); RBC Distribution Width SD 37.2 fl (35.1-43.9); White Blood Count 10.1 K/mm3 (4.4-11.0)
[2023-08-18 19:55] LABS: ALB/GLOB Ratio 0.9 RATIO (0.9-2.4); AST(SGOT) 34 U/L (15-37); Alanine Aminotransfer ALT/SGPT 89 U/L (16-61); Albumin, Serum 3.5 g/dL (3.2-5.0); Alkaline Phosphatase 68 U/L (45-117); Anion Gap 2 (5-15); BUN 12 mg/dL (7-18); BUN/Creat Ratio 11.5 RATIO (10-20); Chloride 106 mmol/L (98-107); Creatinine, Serum 1.04 mg/dL (0.70-1.30); EST Glomerular Filtration Rate 87 mL/min (>60); Est Glom Filt Rate - Afr Amer 105 mL/min (>60); Estimated Creatinine Clearance 127.72 ml/min; Globulin 3.7 g/dL (2.2-4.2); Glucose 87 mg/dL (74-106); Potassium 4.2 mmol/L (3.5-5.1); Protein, Total 7.2 g/dL (6.4-8.2); Sodium Level 138 mmol/L (136-145)
[2023-08-18 20:18] VITALS: BP 134/80; PULSE 97; RESP 16; O2SAT 97
== END 2023-08-18 20:19 | disposition home or self-care (01) ==
PROVIDERS: Emergency Provider Emergency Medicine; PCP Nurse Practitioner Family; Visit Provider Emergency Medicine
DX: T50.901A Poisoning by unspecified drugs, medicaments and biological substances, accidental (unintentional), initial encounter (principal); R10.9 Unspecified abdominal pain
CPT/HCPCS: 80053; 85025; 93005; 99283; A4216